=== PATIENT | female | born 1960 | race African-American/Black ===

== ENCOUNTER 2020-05-18 16:14 | Outpatient (CLI) | payer BC, SELFPAY ==
--- NOTE | ~2020-05-18 | XR_ITS ---
EXAMINATION: XR chest 2V DATE: 05/18/2020 16:34 INDICATION: Pneumonia, history of COVID 19 pneumonia TECHNIQUE: PA and lateral views of the chest are obtained. COMPARISON: 11/18/2019 FINDINGS: The lungs are free of acute opacities. Bibasilar airspace opacities have resolved. There is no pleural effusion or pneumothorax. The cardiomediastinal silhouette is normal. There is mild thora cic spondylosis. IMPRESSION: 1. No acute cardiopulmonary abnormality. Reviewed, dictated and finalized at location A. [facility]
== END 2020-05-18 16:15 | disposition home or self-care (01) ==
LOC: ANHIMG 16:16
PROVIDERS: PCP Internal Medicine; Visit Provider Internal Medicine
DX: J18.9 Pneumonia, unspecified organism (principal)
CPT/HCPCS: 71046